=== PATIENT | male | born 2000 | race Caucasian/White ===

== ENCOUNTER 2019-12-07 03:31 | Emergency (ER) | payer OTHER ==
[~2019-12-07] VITALS: Ht 162.6 cm; Wt 61.8 kg
[2019-12-07] MEDS ORDERED: ONDANSETRON 2MG/ML, 2ML ONE (04:01)
--- NOTE | 2019-12-07 04:18 | NUR ---
PT TO ED WITH INCESSANT VOMITING, PT ALSO REPORTS MULTIPLE EPISODES OF DIARRHEA. PT REPORTS SUDDEN ONSET EARLIER TODAY. DENIES RECENT ABX USE OR HOSPITALIZATION. DENIES COUH, FEVER, CHILLS, OR BODY ACHES. DENIES ANY OTHER C/O AT THIS TIME. IVF INITIATED, MEDICATED PER MAR FOR VOMITING. MONITORING IN PLACE, CALL LIGHT WITHIN REACH, FRIEND AT BS FOR SUPPORT.
[2019-12-07] MEDS ORDERED: SODIUM CHLORIDE FLUSH 10ML SYR IVF ONE (04:30)
[2019-12-07] MEDS ORDERED: SODIUM CHLORIDE 0.9% 1,000ML IVBOLUS ONE (04:30)
[2019-12-07] MEDS ORDERED: ONDANSETRON 2MG/ML, 2ML IVPush ONE (04:30)
[2019-12-07 04:50] LABS: BASOPHILS # (AUTO) 0.05 x10^3/uL (0-0.3); BASOPHILS % (AUTO) 0 % (0-1); EOSINOPHILS # (AUTO) 0.13 x10^3/uL (0-0.8); EOSINOPHILS % (AUTO) 1 % (1-7); LYMPHOCYTES # (AUTO) 0.86 x10^3/uL (1-6.1); LYMPHOCYTES % (AUTO) 6 % (22-44); MD NO; MEAN CORPUSCULAR HEMOGLOBIN 31.3 pg (27.5-34.5); MEAN CORPUSCULAR HGB CONC 33.7 g/dL (33.2-36.2); MEAN CORPUSCULAR VOLUME 92.8 fL (81-97); MEAN PLATELET VOLUME 8.1 fL (7.4-10.4); MONOCYTES # (AUTO) 0.22 x10^3/uL (0-1.4); MONOCYTES % (AUTO) 2 % (2-9); NEUTROPHILS # (AUTO) 12.95 x10^3/uL (1.8-8.0); NEUTROPHILS % (AUTO) 91 % (42-75); PLATELET COUNT 284 x10^3/uL (130-400); RED BLOOD COUNT 4.67 x10^6/uL (4.38-5.82); RED CELL DISTRIBUTION WIDTH 12.2 % (9.4-14.8)
--- NOTE | 2019-12-07 04:51 | NUR ---
PT REPORTS DECREASE IN NAUSEA POST MEDICATION ADMINISTRATION.
[2019-12-07 04:56] LABS: ALBUMIN 3.5 g/dL (3.4-5.0); ANION GAP 5 mmol/L (5-15); CALCIUM 8.6 mg/dL (8.5-10.1); CHLORIDE 110 mmol/L (98-107)
[2019-12-07 04:59] LABS: ALANINE AMINOTRANSFERASE 20 U/L (12-78); ALKALINE PHOSPHATASE 93 U/L (45-117); BILIRUBIN,TOTAL 0.5 mg/dL (0.2-1.0); TOTAL PROTEIN 6.8 g/dL (6.4-8.2)
[2019-12-07 06:03] VITALS: BP 122/56
== END 2019-12-07 06:06 | disposition home or self-care (01) ==
LOC: ED 05:45
DX: K22.6 Gastro-esophageal laceration-hemorrhage syndrome (principal); A09 Infectious gastroenteritis and colitis, unspecified; R11.2 Nausea with vomiting, unspecified; R00.0 Tachycardia, unspecified; R06.02 Shortness of breath
CPT/HCPCS: 36415; 71045; 80053; 83690; 85025; 93005; 96361; 96374; 99285; J2405; J7030